=== PATIENT | male | born 1955 | race Caucasian/White ===

== ENCOUNTER → 2019-05-14 09:47 | Outpatient (BNVA) | payer MEDICAID, SELFPAY | PROVIDERS: PCP Family Medicine; Visit Provider Anesthesiology | DX: M51.36 Other intervertebral disc degeneration, lumbar region (principal); M79.651 Pain in right thigh; M79.652 Pain in left thigh; M50.30 Other cervical disc degeneration, unspecified cervical region; F17.210 Nicotine dependence, cigarettes, uncomplicated; Z79.891 Long term (current) use of opiate analgesic; Z71.6 Tobacco abuse counseling | CPT/HCPCS: 99214 ==

== ENCOUNTER → 2019-05-27 13:18 | Outpatient (BNVA) | payer MEDICAID, SELFPAY | PROVIDERS: PCP Family Medicine; Visit Provider Nurse Practitioner Family | DX: E78.5 Hyperlipidemia, unspecified (principal); F17.200 Nicotine dependence, unspecified, uncomplicated; I10 Essential (primary) hypertension; G25.81 Restless legs syndrome | CPT/HCPCS: 80053; 80061; 83036; 85025 ==

== ENCOUNTER → 2019-07-27 11:32 | Outpatient (BNVA) | payer MEDICAID, SELFPAY | PROVIDERS: PCP Family Medicine; Visit Provider Nurse Practitioner Family | DX: M79.671 Pain in right foot (principal) | CPT/HCPCS: 73630; 80053; 84450; 85025; 87070; 87077; 87186 ==

== ENCOUNTER 2019-07-29 13:47 | Outpatient (CLI) | payer MEDICAID, SELFPAY | END 2019-07-29 13:48 | disposition home or self-care (01) | LOC: WOUND 13:47 | PROVIDERS: PCP Nurse Practitioner Family; Visit Provider Nurse Practitioner Family | DX: S97.111A Crushing injury of right great toe, initial encounter (principal); X58.XXXA Exposure to other specified factors, initial encounter | CPT/HCPCS: 99213; A6446; G0463; L3260 ==

== ENCOUNTER 2019-08-04 10:55 | Outpatient (CLI) | payer MEDICAID, SELFPAY | END 2019-08-04 10:56 | disposition home or self-care (01) | LOC: WOUND 10:56 | PROVIDERS: PCP Nurse Practitioner Family; Visit Provider Thoracic Surgery (Cardiothoracic Vascular Surgery) | DX: I96 Gangrene, not elsewhere classified (principal); L97.514 Non-pressure chronic ulcer of other part of right foot with necrosis of bone | CPT/HCPCS: 11044; 87070; 87077; 87176; 87186; 87205 ==

== ENCOUNTER 2019-08-10 13:55 | Outpatient (CLI) | payer MEDICAID, SELFPAY | END 2019-08-10 13:56 | disposition home or self-care (01) | LOC: WOUND 13:55 | PROVIDERS: PCP Nurse Practitioner Family; Visit Provider Thoracic Surgery (Cardiothoracic Vascular Surgery) | DX: L97.514 Non-pressure chronic ulcer of other part of right foot with necrosis of bone (principal) | CPT/HCPCS: 11042 ==

== ENCOUNTER → 2019-08-11 09:25 | Outpatient (BNVA) | payer MEDICAID, SELFPAY | PROVIDERS: PCP Nurse Practitioner Family; Visit Provider Nurse Practitioner Family | DX: I10 Essential (primary) hypertension (principal); J44.9 Chronic obstructive pulmonary disease, unspecified | CPT/HCPCS: 80048 ==

== ENCOUNTER 2019-08-17 13:55 | Outpatient (CLI) | payer MEDICAID, SELFPAY | END 2019-08-17 13:56 | disposition home or self-care (01) | LOC: WOUND 13:56 | PROVIDERS: PCP Nurse Practitioner Family; Visit Provider Thoracic Surgery (Cardiothoracic Vascular Surgery) | DX: I96 Gangrene, not elsewhere classified (principal); L97.512 Non-pressure chronic ulcer of other part of right foot with fat layer exposed | CPT/HCPCS: 11042; 87070; 87077; 87186 ==

== ENCOUNTER 2019-08-20 11:09 | Outpatient (CLI) | payer MEDICAID, SELFPAY ==
--- NOTE | 2019-08-20 11:13 | USCV_ITS ---
Kris Akins Age: 64 Gender: M : 1955 Exam Date: 08/20/2019 11:30 Ordering Phys: Norah Conklin Technologist: Mary Cross [place] [facility] [place]: HISTORY: non healing ulcer PROCEDURES: The following venous structures were evaluated: common femoral vein, profunda vein, proximal portion of the greater saphenous vein, superficial femoral vein, and the popliteal vein. Right duplex Venous Insufficiency study of the Deep and Superficial systems was carried out according to normal protocol with the patient in supine positon for deep system and dependent position for the superficial system. FINDINGS: There is no evidence of RIGHT deep vein thrombosis. No evidence of superficial thrombosis in the RIGHT saphenous system. Reflux is demonstrated in the deep venous system throughout all levels. Veins are superficial and tortuous therefore not a good candidate for ablation, however could consult for sugical removal. CONCLUSIONS No evidence of DVT in the above-mentioned identifiable veins. Significant venous reflux of greater than 500 ms(2810- 3560 msecs) were noted in the right greater saphenous vein - at the saphenofemoral junction, distal to the saphenofemoral junction, proximal, mid, distal and below-knee greater saphenous vein segments. No significant reflux was noted in the small saphenous vein segments. The below-knee greater saphenous vein segment was less than 1 cm deep from the surface. The venous dimensions, depth from the surface and the reflux times are as mentioned above Dr Haritha Hernandez MD [facility] (Electronically Signed) Final Date: 23 August 2019 18:25 S
== END 2019-08-20 11:10 | disposition home or self-care (01) ==
LOC: RAD 11:09
PROVIDERS: PCP Nurse Practitioner Family; Visit Provider Nurse Practitioner Family
DX: L97.919 Non-pressure chronic ulcer of unspecified part of right lower leg with unspecified severity (principal); R52 Pain, unspecified
CPT/HCPCS: 93971

== ENCOUNTER 2019-08-24 11:02 | Outpatient (CLI) | payer MEDICAID, SELFPAY ==
--- NOTE | 2019-08-24 11:10 | USCV_ITS ---
MableKris de leon Age: 64 Gender: M : 1955 Exam Date: 08/24/2019 11:22 Ordering Phys: Norah Conklin Technologist: Exam Location: [facility] [place] Indication: NON HEALING ULCER RIGHT LEFT Brachial 188.00 mmHg Brachial 188.00 mmHg Pressure (mmHg) Waveform Pressure (mmHg) Waveform 125.00 Above Knee 105.00 Below Knee 99.00 DATABASE REPORT WRITER 104.00 DPA 0.55 Ankle/Brachial Index FINDINGS Moderately diminished resting SHMUEL 0.55 on the right side. PVR waveforms are of suboptimal quality. Loss of dicrotic notch in the below-knee and at the ankle level CONCLUSIONS The above features are suggestive of moderately severe peripheral arterial disease on the right side Dr Haritha Hernandez MD [facility] (Electronically Signed) Final Date: 24 August 2019 18:15 S
== END 2019-08-24 11:03 | disposition home or self-care (01) ==
LOC: RAD 11:03
PROVIDERS: PCP Nurse Practitioner Family; Visit Provider Nurse Practitioner Family
DX: R52 Pain, unspecified (principal); L98.499 Non-pressure chronic ulcer of skin of other sites with unspecified severity
CPT/HCPCS: 93922

== ENCOUNTER 2019-08-24 13:43 | Outpatient (RCR) | payer MEDICAID, SELFPAY | END 2019-09-14 23:59 | disposition home or self-care (01) | LOC: WOUND 13:43 | PROVIDERS: PCP Nurse Practitioner Family; Visit Provider Thoracic Surgery (Cardiothoracic Vascular Surgery) | DX: I96 Gangrene, not elsewhere classified (principal); L97.512 Non-pressure chronic ulcer of other part of right foot with fat layer exposed | CPT/HCPCS: 11042; L3260 ==

== ENCOUNTER 2019-08-31 14:06 | Outpatient (CLI) | payer MEDICAID, SELFPAY | END 2019-08-31 14:07 | disposition home or self-care (01) | LOC: WOUND 14:08 | PROVIDERS: PCP Nurse Practitioner Family; Visit Provider Thoracic Surgery (Cardiothoracic Vascular Surgery) | DX: I96 Gangrene, not elsewhere classified (principal); L97.512 Non-pressure chronic ulcer of other part of right foot with fat layer exposed | CPT/HCPCS: 11042; A6446 ==

== ENCOUNTER → 2019-09-01 10:02 | Outpatient (BNVA) | payer MEDICAID, SELFPAY | PROVIDERS: PCP Nurse Practitioner Family; Visit Provider Anesthesiology | DX: M51.36 Other intervertebral disc degeneration, lumbar region (principal); M54.9 Dorsalgia, unspecified; M50.30 Other cervical disc degeneration, unspecified cervical region; F17.210 Nicotine dependence, cigarettes, uncomplicated; Z79.891 Long term (current) use of opiate analgesic | CPT/HCPCS: 99214 ==

== ENCOUNTER 2019-09-07 10:35 | Outpatient (CLI) | payer MEDICAID, SELFPAY | END 2019-09-07 10:36 | disposition home or self-care (01) | LOC: WOUND 10:43 | PROVIDERS: PCP Nurse Practitioner Family; Visit Provider Thoracic Surgery (Cardiothoracic Vascular Surgery) | DX: I96 Gangrene, not elsewhere classified (principal); L97.512 Non-pressure chronic ulcer of other part of right foot with fat layer exposed | CPT/HCPCS: 11042 ==

== ENCOUNTER 2019-09-14 10:48 | Outpatient (CLI) | payer MEDICAID, SELFPAY | END 2019-09-14 10:49 | disposition home or self-care (01) | LOC: WOUND 10:48 | PROVIDERS: PCP Nurse Practitioner Family; Visit Provider Thoracic Surgery (Cardiothoracic Vascular Surgery) | DX: Z09 Encounter for follow-up examination after completed treatment for conditions other than malignant neoplasm (principal) | CPT/HCPCS: 99212 ==

== ENCOUNTER → 2019-11-09 09:03 | Outpatient (BNVA) | payer MEDICAID, SELFPAY | PROVIDERS: PCP Nurse Practitioner Family; Visit Provider Anesthesiology | DX: M54.41 Lumbago with sciatica, right side (principal); M51.36 Other intervertebral disc degeneration, lumbar region; M54.9 Dorsalgia, unspecified; M50.30 Other cervical disc degeneration, unspecified cervical region; F17.210 Nicotine dependence, cigarettes, uncomplicated; Z79.891 Long term (current) use of opiate analgesic; Z71.6 Tobacco abuse counseling | CPT/HCPCS: 99214 ==

== ENCOUNTER → 2020-01-04 09:22 | Outpatient (BNVA) | payer MEDICAID, SELFPAY | PROVIDERS: PCP Nurse Practitioner Family; Visit Provider Anesthesiology | DX: M50.30 Other cervical disc degeneration, unspecified cervical region (principal); M51.36 Other intervertebral disc degeneration, lumbar region; M54.9 Dorsalgia, unspecified; F17.210 Nicotine dependence, cigarettes, uncomplicated; Z79.891 Long term (current) use of opiate analgesic | CPT/HCPCS: 99213; 99214 ==

== ENCOUNTER → 2020-01-27 11:33 | Outpatient (BNVA) | payer MEDICAID, SELFPAY | PROVIDERS: PCP Nurse Practitioner Family; Visit Provider Nurse Practitioner Family | DX: I10 Essential (primary) hypertension (principal); Z12.5 Encounter for screening for malignant neoplasm of prostate | CPT/HCPCS: 80053; 80061; 85025; G0103 ==

== ENCOUNTER → 2020-03-09 10:23 | Outpatient (BNVA) | payer MEDICAID, SELFPAY | PROVIDERS: PCP Nurse Practitioner Family; Visit Provider Anesthesiology | DX: M54.9 Dorsalgia, unspecified (principal); M50.30 Other cervical disc degeneration, unspecified cervical region; M51.36 Other intervertebral disc degeneration, lumbar region; F17.210 Nicotine dependence, cigarettes, uncomplicated; Z79.891 Long term (current) use of opiate analgesic | CPT/HCPCS: 99214 ==

== ENCOUNTER → 2020-05-09 11:21 | Outpatient (BNVA) | payer MEDICAID, SELFPAY | PROVIDERS: PCP Nurse Practitioner Family; Visit Provider Anesthesiology | DX: M50.30 Other cervical disc degeneration, unspecified cervical region (principal); M51.36 Other intervertebral disc degeneration, lumbar region; M54.9 Dorsalgia, unspecified; F17.210 Nicotine dependence, cigarettes, uncomplicated; Z79.891 Long term (current) use of opiate analgesic | CPT/HCPCS: 99214 ==

== ENCOUNTER → 2020-07-07 10:48 | Outpatient (BNVA) | payer MEDICAID, SELFPAY | PROVIDERS: PCP Nurse Practitioner Family; Visit Provider Nurse Practitioner | DX: M51.36 Other intervertebral disc degeneration, lumbar region (principal); M54.9 Dorsalgia, unspecified; M50.30 Other cervical disc degeneration, unspecified cervical region; F17.210 Nicotine dependence, cigarettes, uncomplicated; Z79.891 Long term (current) use of opiate analgesic; Z71.6 Tobacco abuse counseling | CPT/HCPCS: 99213; 99214 ==

== ENCOUNTER → 2020-08-22 12:00 | Outpatient (BNVA) | payer MEDICARE, MEDICAID, SELFPAY | PROVIDERS: PCP Nurse Practitioner Family; Visit Provider Nurse Practitioner Family | DX: L03.031 Cellulitis of right toe (principal); R29.91 Unspecified symptoms and signs involving the musculoskeletal system | CPT/HCPCS: 87070; 87075; 87077; 87184; 87205 ==

== ENCOUNTER → 2020-08-25 10:33 | Outpatient (BNVA) | payer MEDICARE, MEDICAID, SELFPAY | PROVIDERS: PCP Nurse Practitioner Family; Referring Provider Nurse Practitioner Family; Visit Provider Podiatrist Foot & Ankle Surgery | DX: M79.673 Pain in unspecified foot (principal); L97.514 Non-pressure chronic ulcer of other part of right foot with necrosis of bone | CPT/HCPCS: 73630 ==

== ENCOUNTER → 2020-08-28 10:04 | Outpatient (BNVA) | payer MEDICARE, MEDICAID, SELFPAY | PROVIDERS: PCP Nurse Practitioner Family; Visit Provider Podiatrist Foot & Ankle Surgery | DX: Z20.822 Contact with and (suspected) exposure to COVID-19 (principal); L97.514 Non-pressure chronic ulcer of other part of right foot with necrosis of bone; M79.673 Pain in unspecified foot | CPT/HCPCS: 87635 ==

== ENCOUNTER 2020-09-01 08:10 | Day surgery (SDC) | payer MEDICARE, MEDICAID, SELFPAY ==
[2020-08-31 16:21] VITALS: BMI 25.5
[2020-09-01] VITALS (7 sets, daily range): BP systolic 115–190; BP diastolic 71–104; PULSE 51–57; RESP 14–20; TEMP 36.5–37; O2SAT 93–99
--- NOTE | 2020-09-01 08:47 | ANES.PREANE2 ---
Pre-Anesthetic Assessment Pre-Anesthetic Assessment: Height/Weight: Height 1.93 m Weight 95.254 kg Preop Diagnosis: Osteomyelitis right great toe Proposed Procedure: Operation Date: 09/01/20 09:25 Proposed Procedures p Right great toe amputation 45084 with possible 52268 L97.514(Right) - AQUILINO JeffreyM Was Beta Susan taken within 24 hours: Yes Was Clonidine taken within 24 hours: N/A Social: Social History: Tobacco and No alcohol Exam: Pre-Anes Outpt Exam: alert, oriented x 3 and regular rate & rhythm Airway: Submandibular: WNL Cervical ROM: WNL MP: 2 Dentition: False Pulmonary: Pulmonary: COPD CV/HEM: CV/HEM: CAD (CABG) and HTN Anesthetic Plan: ASA status: 3 Anesthesia: MAC Risk of > 500 ml blood loss (7ml/kg in children): No PFSH Anesthesia PFSH: Medical History Accelerated essential hypertension CAD (coronary artery disease) COPD (chronic obstructive pulmonary disease) DDD (degenerative disc disease), cervical DDD (degenerative disc disease), lumbar Encounter for long-term use of opiate analgesic Hepatitis B Hyperlipidemia Opioid contract exists Smoker Surgical History History of open heart surgery Hx of CABG (~2013) Hx of fusion of cervical spine S/P cervical spinal fusion Family History Other CAD (coronary artery disease) Cancer Hypertension Social History Smoking and tobacco status: current every day smoker cigarettes Packs smoked per day: 1.5 Years cigarettes smoked: 45 Second hand smoke exposure: No Alcohol intake: former 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
[2020-09-01] MEDS: sodium chloride 0.9% 1,000 ML 30 ML IV (08:49)
--- NOTE | 2020-09-01 09:01 | P.HPUD_ITS ---
Surgery/Procedure H&P Update DATE OF PROCEDURE: September 01, 2020 DATE H&P PERFORMED: 08/25/20 H&P UPDATE INFORMATION: I have reviewed H&P completed within last 30 days, I have examined patient prior to procedure, No changes to prior documentation and H&P is in [facility] [place] on date indicated PREOP DIAGNOSIS: Osteomyelitis right great toe PLANNED PROCEDURE: Operation Date: 09/01/20 09:25 Proposed Procedures p Right great toe amputation 17064 with possible 39790 L97.514(Right) - Donald Mo DPM
[2020-09-01] MEDS: lidocaine 1% INJ 20 mL INJECTION (09:55)
--- NOTE | 2020-09-01 10:22 | XR_ITS ---
WS: [id number] Exam: XR foot RT min 3V* [id number] Date/Time of Exam: 09/01/2020 10:24 AM Reason For Exam: post op Comparison 08/25/2020. The remaining proximal phalanx of the great toe is been amputated. No other postoperative changes are identified. The soft tissues are otherwise unremarkable. XR/XR foot RT min 3V* [id number] IMPRESSION: 1. Amputation of the remaining proximal phalanx of the great toe. No other post operative changes noted.
--- NOTE | 2020-09-01 11:11 | SUR.PHASEII ---
rx for bactrim ds 800/160mg 1 po bid x7 d #14 0 rf called into [facility] per order from dr trimble.
--- NOTE | 2020-09-01 11:13 | SUR.PHASEII ---
correction to previous note, x14 days, # 28.
--- NOTE | 2020-09-01 14:24 | ANE.PACU2 ---
Inpatient post-anesthesia follow up: Airway intact: Yes Vital signs: Temperature 98.2 F Pulse Rate 52 Respiratory Rate 18 Blood Pressure 177/79 Pulse Oximetry 97 Oxygen Delivery Me thod Room Air Oxygen Flow Rate Fraction of Inspir ed Oxygen Hydration adequate: Yes Nausea and vomiting: No Pain level: 1 Mental status: Baseline
--- NOTE | 2020-09-01 21:43 | P.OP_ITS ---
Operative Report Date of procedure: September 01, 2020 Pre-op Diagnosis: Osteomyelitis right great toe Post-op diagnosis: same Procedure Done: Right great toe amputation CPT 09502 Implants: 3-0 Vicryl, 4-0 nylon Specimens removed/disposition: Right great toe sent to pathology for gross anatomical review. Pathology: Right great toe sent to pathology for gross anatomical review. Surgeon: Donald Mo D.P.M Tiler'S Assistant: Reg Anesthesia: MAC Estimated blood loss: 10 Tourniquet time: See intra-operative documentation Urine output: none Complications: none Findings: clean margins Condition: stable Disposition: PACU Brief History: Chronic osteomyelitis distal phalanx of right hallux is largely destroyed. Due to lack of bony structure the right great toe is deviating and patient is requesting amputation in effort to eliminate underlying chronic osteomyelitis and is optimistic that will also help decrease his pain. He does not have an open wound however his right great toe is red and swollen and demonstrates warmth clinically. Complications include pain, bleeding, numbness, infection, transfer pressure, transfer lesion, surgical site dehiscence, further infection and need for higher levels of amputation. Patient is agreeable wishes to proceed. No guarantees written, correct or implied. Procedure: Under mild sedation the patient was brought to the operating room and placed on operating table in supine position. A timeout was performed. Anesthesia was then administered by the anesthesia service. Local anesthesia injected by myself consisting of 30 cc of 0.5% Marcaine and 1% lidocaine in a one-to-one mixture and a right Springer block fashion. Well-padded pneumatic tourniquet applied to the right ankle. Right lower extremity was scrubbed, prepped and draped utilizing normal aseptic technique. Attention was directed to the right great toe where a fishmouth incision was made at the metatarsophalangeal joint full-thickness and the right hallux was disarticulated sharply and passed my operative field this will be sent to pathology for gross anatomical review. First metatarsal head was viable color and density, there is no devitalized soft tissue or bone at this level appreciated. The incision site was flushed with copious amounts of sterile saline solution. Subcutaneous tissue and deep structures closed utilizing 3-0 Vicryl skin closed utilizing 4-0 nylon. Incision site was then dressed utilizing Adaptic, sterile 4 x 4, Kerlix and Jaron wrap followed by application of postop shoe. Tourniquet was deflated and a prompt hyperemic response was noted to the remaining digits of the right foot. Patient tolerated the procedure and anesthesia well transferred to the PACU with vital signs stable vascular status intact. I encouraged him to remain nonweightbearing to the right lower extremity he may heel touch only for transfers with a postop shoe. Was given further postoperative care instructions and follow-up on discharge paperwork.
== END 2020-09-01 11:01 | disposition home or self-care (01) ==
PROVIDERS: PCP Nurse Practitioner Family; Visit Provider Podiatrist Foot & Ankle Surgery
PROC: (CPT 28820; principal; 2020-09-01 09:15)
DX: M19.071 Primary osteoarthritis, right ankle and foot (principal); J44.9 Chronic obstructive pulmonary disease, unspecified; I25.10 Atherosclerotic heart disease of native coronary artery without angina pectoris; I10 Essential (primary) hypertension; E78.5 Hyperlipidemia, unspecified; F17.210 Nicotine dependence, cigarettes, uncomplicated; Z98.1 Arthrodesis status; Z79.82 Long term (current) use of aspirin
CPT/HCPCS: 28820; 73630; 88305; 96365; J0690; J2250; J2704; J3010; J3490; J7030

== ENCOUNTER → 2020-09-05 10:21 | Outpatient (BNVA) | payer MEDICARE, MEDICAID, SELFPAY | PROVIDERS: PCP Nurse Practitioner Family; Visit Provider Nurse Practitioner | DX: M51.36 Other intervertebral disc degeneration, lumbar region (principal); M50.30 Other cervical disc degeneration, unspecified cervical region; M54.9 Dorsalgia, unspecified; F17.210 Nicotine dependence, cigarettes, uncomplicated; Z79.891 Long term (current) use of opiate analgesic; Z71.6 Tobacco abuse counseling | CPT/HCPCS: 99214 ==

== ENCOUNTER 2020-09-11 09:29 | Outpatient (CLI) | payer MEDICARE, MEDICAID, SELFPAY ==
--- NOTE | 2020-09-11 09:35 | XRR_ITS ---
PROCEDURE INFORMATION: Exam: XR Right Foot Exam date and time: 09/11/2020 9:35 AM Age: 65 years old Clinical indication: Pain; Foot; Right; Prior surgery; Additional info: Follow up, weight bearing TECHNIQUE: Imaging protocol: XR Right foot. Views: 3 or more views. COMPARISON: CR XR foot RT min 3V* [id number] 09/01/2020 10:32 AM FINDINGS: Bones/joints: The patient has undergone amputation of the 1st toe at the level of the metatarsophalangeal joint. No recent fracture, dislocation, destructive or erosive processes are seen. Mild chronic degenerative joint disease is present with mild joint space narrowing. Soft tissues: No gas or foreign bodies are seen in the soft tissues. XR/XR foot RT min 3V* [id number] IMPRESSION: 1. The 1st toe has been amputated at the metatarsophalangeal joint. 2. No acute abnormalities are seen.
== END 2020-09-11 09:30 | disposition home or self-care (01) ==
PROVIDERS: PCP Nurse Practitioner Family; Visit Provider Podiatrist Foot & Ankle Surgery
DX: M79.671 Pain in right foot (principal); Z89.421 Acquired absence of other right toe(s)
CPT/HCPCS: 73630

== ENCOUNTER → 2020-09-22 09:37 | Outpatient (BNVA) | payer MEDICARE, MEDICAID, SELFPAY | PROVIDERS: PCP Nurse Practitioner Family; Visit Provider Podiatrist Foot & Ankle Surgery | DX: M79.673 Pain in unspecified foot (principal); Z89.411 Acquired absence of right great toe | CPT/HCPCS: 73630 ==

== ENCOUNTER → 2020-10-31 10:57 | Outpatient (BNVA) | payer MEDICARE, MEDICAID, SELFPAY | PROVIDERS: PCP Nurse Practitioner Family; Visit Provider Nurse Practitioner | DX: M51.36 Other intervertebral disc degeneration, lumbar region (principal); M50.30 Other cervical disc degeneration, unspecified cervical region; G25.81 Restless legs syndrome; F17.210 Nicotine dependence, cigarettes, uncomplicated; Z79.891 Long term (current) use of opiate analgesic; Z71.6 Tobacco abuse counseling | CPT/HCPCS: 99214 ==

== ENCOUNTER → 2020-12-01 11:50 | Outpatient (BNVA) | payer MEDICARE, MEDICAID, SELFPAY | PROVIDERS: PCP Nurse Practitioner Family; Visit Provider Nurse Practitioner | DX: G89.29 Other chronic pain (principal); M51.36 Other intervertebral disc degeneration, lumbar region; M50.30 Other cervical disc degeneration, unspecified cervical region; F17.200 Nicotine dependence, unspecified, uncomplicated; Z79.891 Long term (current) use of opiate analgesic; Z71.6 Tobacco abuse counseling | CPT/HCPCS: 99214 ==

== ENCOUNTER → 2020-12-26 18:35 | Outpatient (BNVA) | payer MEDICARE, MEDICAID, SELFPAY | PROVIDERS: PCP Nurse Practitioner Family; Visit Provider Nurse Practitioner Family | DX: I10 Essential (primary) hypertension (principal); G25.81 Restless legs syndrome; J44.9 Chronic obstructive pulmonary disease, unspecified; E78.5 Hyperlipidemia, unspecified; Z23 Encounter for immunization; Z12.11 Encounter for screening for malignant neoplasm of colon | CPT/HCPCS: 80053; 80061; 82607; 84443; 85025 ==

== ENCOUNTER → 2021-02-02 10:40 | Outpatient (BNVA) | payer MEDICARE, MEDICAID, SELFPAY | PROVIDERS: PCP Nurse Practitioner Family; Visit Provider Anesthesiology | DX: G89.29 Other chronic pain (principal); M50.30 Other cervical disc degeneration, unspecified cervical region; M51.36 Other intervertebral disc degeneration, lumbar region; F17.210 Nicotine dependence, cigarettes, uncomplicated; Z79.891 Long term (current) use of opiate analgesic; Z79.899 Other long term (current) drug therapy; Z71.6 Tobacco abuse counseling | CPT/HCPCS: 99214 ==

== ENCOUNTER → 2021-03-13 16:57 | Outpatient (BNVA) | payer MEDICARE, MEDICAID, SELFPAY | PROVIDERS: PCP Nurse Practitioner Family; Visit Provider Nurse Practitioner Family | DX: R53.1 Weakness (principal); R19.7 Diarrhea, unspecified; R63.4 Abnormal weight loss; I95.9 Hypotension, unspecified; R42 Dizziness and giddiness; J44.9 Chronic obstructive pulmonary disease, unspecified; J40 Bronchitis, not specified as acute or chronic; R05.9 Cough, unspecified; R11.0 Nausea | CPT/HCPCS: 80053; 83735; 84100 ==

== ENCOUNTER → 2021-04-03 13:57 | Outpatient (BNVA) | payer MEDICARE, MEDICAID, SELFPAY | PROVIDERS: PCP Nurse Practitioner Family; Visit Provider Anesthesiology | DX: G89.29 Other chronic pain (principal); M50.30 Other cervical disc degeneration, unspecified cervical region; M51.36 Other intervertebral disc degeneration, lumbar region; G25.81 Restless legs syndrome; F17.200 Nicotine dependence, unspecified, uncomplicated; Z79.891 Long term (current) use of opiate analgesic | CPT/HCPCS: 99214 ==

== ENCOUNTER 2022-01-26 12:04 | Emergency (ER) | payer MEDICARE, MEDICAID, SELFPAY ==
[2022-01-26 12:07] VITALS: BP 185/100; PULSE 86; RESP 16; TEMP 37.2; O2SAT 96; BMI 23.7
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
[2022-01-26] MEDS: tetanus-dipt-pertussis 0.5 mL SDV IM (13:29)
[2022-01-26] MEDS: neomycin-poly-bacitracin oint 28 gm 1 APPLIC TOPICAL (14:01)
[2022-01-26 14:05] VITALS: BP 134/71; PULSE 77; RESP 16
== END 2022-01-26 14:08 | disposition home or self-care (01) ==
PROVIDERS: Emergency Provider Emergency Medicine; PCP Nurse Practitioner Family
DX: S02.2XXA Fracture of nasal bones, initial encounter for closed fracture (principal); S00.81XA Abrasion of other part of head, initial encounter; S00.412A Abrasion of left ear, initial encounter; I25.10 Atherosclerotic heart disease of native coronary artery without angina pectoris; J44.9 Chronic obstructive pulmonary disease, unspecified; Z86.19 Personal history of other infectious and parasitic diseases; E78.5 Hyperlipidemia, unspecified; Z95.1 Presence of aortocoronary bypass graft; Y04.2XXA Assault by strike against or bumped into by another person, initial encounter; Z23 Encounter for immunization
CPT/HCPCS: 70450; 70486; 90471; 90715; 99284

== ENCOUNTER → 2022-03-01 13:17 | Outpatient (BNVA) | payer MEDICARE, MEDICAID, SELFPAY | PROVIDERS: PCP Nurse Practitioner Family; Visit Provider Nurse Practitioner Family | DX: Z23 Encounter for immunization (principal); I10 Essential (primary) hypertension; G25.81 Restless legs syndrome; R07.9 Chest pain, unspecified | CPT/HCPCS: 80053; 80061; 84443; 85025 ==

== ENCOUNTER → 2022-03-12 11:10 | Outpatient (BNVA) | payer MEDICARE, MEDICAID, SELFPAY | PROVIDERS: PCP Nurse Practitioner Family; Visit Provider Nurse Practitioner Family | DX: R19.7 Diarrhea, unspecified (principal) | CPT/HCPCS: 82270; 87338; 87493; 87506 ==

== ENCOUNTER → 2022-09-24 10:28 | Outpatient (BNVA) | payer MEDICARE, MEDICAID, SELFPAY | PROVIDERS: PCP Nurse Practitioner Family; Visit Provider Nurse Practitioner Family | DX: I10 Essential (primary) hypertension (principal) | CPT/HCPCS: 80053; 80061; 84443; 85025 ==

== ENCOUNTER → 2023-04-10 10:00 | Outpatient (BNVA) | payer MEDICARE, MEDICAID, SELFPAY | PROVIDERS: PCP Nurse Practitioner Family; Visit Provider Nurse Practitioner Family | DX: G25.81 Restless legs syndrome (principal); I10 Essential (primary) hypertension; Z12.5 Encounter for screening for malignant neoplasm of prostate | CPT/HCPCS: 80053; 80061; 82607; 84443; 85025; G0103 ==

== ENCOUNTER → 2024-02-24 11:12 | Outpatient (BNVA) | payer MEDICARE, MEDICAID, SELFPAY | PROVIDERS: PCP Nurse Practitioner Family; Visit Provider Nurse Practitioner Family | DX: I10 Essential (primary) hypertension (principal) | CPT/HCPCS: 80053; 80061; 84443; 85025 ==

== ENCOUNTER → 2024-09-13 11:18 | Outpatient (BNVA) | payer MEDICARE, MEDICAID, SELFPAY | PROVIDERS: PCP Nurse Practitioner Family; Visit Provider Nurse Practitioner Family | DX: Z12.5 Encounter for screening for malignant neoplasm of prostate (principal); I10 Essential (primary) hypertension; E78.5 Hyperlipidemia, unspecified | CPT/HCPCS: 80053; 80061; 84443; 85025; G0103 ==

== ENCOUNTER → 2025-03-07 11:00 | Outpatient (BNVA) | payer MEDICARE, MEDICAID, SELFPAY | PROVIDERS: PCP Nurse Practitioner Family; Visit Provider Nurse Practitioner Family | DX: I10 Essential (primary) hypertension (principal); E78.5 Hyperlipidemia, unspecified | CPT/HCPCS: 80053; 80061; 84443; 85025 ==